=== PATIENT | female | born 1940 | race Two or more races ===

== ENCOUNTER 2023-11-12 16:34 | Observation (INO) | payer BC ==
[2023-11-12 18:03] LABS: VENOUS BASE EXCESS -0.3 mmol/L (-2-2); VENOUS O2 SATURATION 50.4 % (70-80); VENOUS PCO2 41.4 mmHg (38-52); VENOUS PH 7.392 (7.310-7.410)
[2023-11-12 18:07] LABS: BASO % 0.9 % (0-2.0); EOS % 4.5 % (0-4.5); HEMATOCRIT 35.7 % (32.4-45.2); HEMOGLOBIN 11.7 GM/dL (10.7-15.3); LYMPH % 26.9 % (8-40); MCH 32.3 pg (25.7-33.7); MCHC 32.6 g/dl (32.0-36.0); MEAN PLT VOLUME 7.8 fl (7.5-11.1); MONO % 7.2 % (3.8-10.2); NEUT % 60.5 % (42.8-82.8); PLATELET COUNT 343 10^3/uL (134-434); RBC 3.61 M/mm3 (3.60-5.2); RDW 16.3 % (11.6-15.6); WHITE BLOOD COUNT 7.6 K/mm3 (4.0-10.0)
[2023-11-12 18:09] LABS: EPI CELLS 34 /uL (0-25.1); HYALINE CASTS 0 /uL (0-3.1); URINE APPEARANCE CLEAR; URINE BACTERIA >9,000 /uL (0-1359); URINE BILIRUBIN NEGATIVE (NEGATIVE); URINE COLOR YELLOW; URINE GLUCOSE (UA) NEGATIVE (NEGATIVE); URINE KETONE NEGATIVE (NEGATIVE); URINE LEUK ESTERASE 1+ (NEGATIVE); URINE NITRITE NEGATIVE (NEGATIVE); URINE PROTEIN NEGATIVE (NEGATIVE); URINE RBC 5 /uL (0-23.9); URINE UROBILINOGEN 0.2 mg/dL (0.2-1.0); URINE WBC 54 /uL (0-25.8)
[2023-11-12 18:13] LABS: INR 1.05 (0.83-1.09); PROTHROMBIN TIME (PATIENT) 12.2 SEC (9.7-13.0)
[2023-11-12 18:16] LABS: ACTIVATED PTT 25.5 SECONDS (25.2-36.5)
[2023-11-12] MEDS ORDERED: ACETAMINOPHEN INJECTION 100 ML IVPB ONE (18:35)
[2023-11-12 18:37] LABS: POTASSIUM 3.9 mmol/L (3.5-5.1)
[2023-11-12 18:39] LABS: ALBUMIN 3.1 g/dl (3.4-5.0); BLOOD UREA NITROGEN 18.6 mg/dL (7-18); CALCIUM 8.9 mg/dL (8.5-10.1); MAGNESIUM 1.6 mg/dL (1.8-2.4)
[2023-11-12] MEDS: ACETAMINOPHEN 1000 MG/100 ML BAG IVPB ONE (18:39)
[2023-11-12 18:42] LABS: CREATININE 0.8 mg/dL (0.55-1.3); PHOSPHOROUS 3.5 mg/dL (2.5-4.9)
[2023-11-12 18:44] LABS: BILIRUBIN,TOTAL 0.5 mg/dL (0.2-1); TOT PROT 7.5 g/dl (6.4-8.2)
[2023-11-12] MEDS ORDERED: CEFTRIAXONE 1 GM/50 ML BAG ONE (19:18)
[2023-11-12] MEDS: CEFTRIAXONE 1 GM in DEXTROSE 5%-WATER - 100 ML IVPB ONE (19:29)
[2023-11-12] MEDS ORDERED: MAGNESIUM SULFATE IN WATER 2 GM/50 ML IVPB IVPB ONE (20:47)
[2023-11-12] MEDS: MAGNESIUM SULFATE IN WATER 2 GM/50 ML IVPB IVPB ONE (20:53)
[2023-11-12] MEDS ORDERED: ALBUTEROL SO4 HFA INHALER IH PRN (22:59)
[2023-11-12 23:15] VITALS: BMI 25.0
[2023-11-12] MEDS: GABAPENTIN 100 MG CAPSULE PO SCH (23:30)
[2023-11-12 23:35] LABS: N-TERMINAL BNP 191.8 pg/ml (5-450)
[2023-11-12] MEDS: ALBUTEROL SO4 2.5/IPRATROPIUM 0.5 INH SOL 3 ML VIAL.NEB. NEB SCH (23:55)
[2023-11-13] MEDS: ALBUTEROL SO4 2.5/IPRATROPIUM 0.5 INH SOL 3 ML VIAL.NEB. NEB SCH (07:40)
[2023-11-13 07:57] LABS: POTASSIUM 3.8 mmol/L (3.5-5.1)
[2023-11-13 07:59] LABS: CALCIUM 8.1 mg/dL (8.5-10.1)
[2023-11-13 08:00] LABS: BLOOD UREA NITROGEN 17.7 mg/dL (7-18)
[2023-11-13 08:03] LABS: CREATININE 0.8 mg/dL (0.55-1.3); MAGNESIUM 2.1 mg/dL (1.8-2.4); PHOSPHOROUS 3.7 mg/dL (2.5-4.9)
[2023-11-13 08:04] LABS: BILIRUBIN,TOTAL 0.4 mg/dL (0.2-1); TOT PROT 6.2 g/dl (6.4-8.2)
[2023-11-13 08:07] LABS: ALBUMIN 2.4 g/dl (3.4-5.0)
[2023-11-13 09:13] LABS: HEMATOCRIT 31.2 % (32.4-45.2); MCH 31.9 pg (25.7-33.7); MCHC 32.2 g/dl (32.0-36.0); MEAN CELL VOLUME 99.2 fl (80-96); MEAN PLT VOLUME 8.2 fl (7.5-11.1); PLATELET COUNT 293 10^3/uL (134-434); RBC 3.15 M/mm3 (3.60-5.2); WHITE BLOOD COUNT 5.2 K/mm3 (4.0-10.0)
[2023-11-13] MEDS: ENOXAPARIN NA (PORCINE) 40 MG/0.4 ML DISP.SYRIN SQ SCH (09:40)
[2023-11-13] MEDS: DONEPEZIL HCL 5 MG TABLET (FP) PO SCH (09:40)
[2023-11-13] MEDS: FOLIC ACID 1 MG TABLET (FP) PO SCH (09:40)
[2023-11-13] MEDS: MONTELUKAST NA 10 MG TABLET PO SCH (09:40)
[2023-11-13] MEDS ORDERED: CEFTRIAXONE 1,000 MG in DEXTROSE 5%-WATER - 50 ML IVPB SCH (10:00)
[2023-11-13] MEDS ORDERED: PATIENT'S OWN MEDICATION (NON-FORMULARY) (Losartan/Hydrochlorothiazide [Losartan-Hctz 100- PO SCH (10:00)
[2023-11-13] MEDS: CEFTRIAXONE 1 GM in DEXTROSE 5%-WATER - 50 ML IVPB SCH (10:10)
[2023-11-13] MEDS: TOLTERODINE TARTRATE LA 4 MG CAP.SR.24H (FP) PO SCH (10:49)
[2023-11-13] MEDS: NORTRIPTYLINE HCL 10 MG CAPSULE PO SCH (10:50)
[2023-11-13] MEDS: LOSARTAN 50MG/HCTZ 12.5MG 1 TAB PO SCH (10:50)
[2023-11-13] MEDS: SODIUM CHLORIDE NASAL SPRAY 44 ML BOTTLE NS PRN (17:06)
[2023-11-13] MEDS: ACETAMINOPHEN 1000 MG/100 ML BAG IVPB PRN (17:48)
[2023-11-13] MEDS: LIDOCAINE 4% PATCH TP SCH (17:57)
[2023-11-13] MEDS: methylPREDNISolone NA SUCC 40 MG/1 ML VIAL IVPUSH SCH (22:23)
[2023-11-13] MEDS: LIDOCAINE PATCH REMOVAL MC SCH (22:31)
[2023-11-14 08:22] LABS: POTASSIUM 4.5 mmol/L (3.5-5.1)
[2023-11-14 08:25] LABS: CALCIUM 8.6 mg/dL (8.5-10.1)
[2023-11-14 08:26] LABS: ALBUMIN 2.6 g/dl (3.4-5.0); BLOOD UREA NITROGEN 20.1 mg/dL (7-18); MAGNESIUM 2.1 mg/dL (1.8-2.4)
[2023-11-14 08:29] LABS: CREATININE 0.9 mg/dL (0.55-1.3)
[2023-11-14 08:31] LABS: BASO % 0.2 % (0-2.0); BILIRUBIN,TOTAL 0.3 mg/dL (0.2-1); HEMATOCRIT 33.5 % (32.4-45.2); HEMOGLOBIN 10.8 GM/dL (10.7-15.3); LYMPH % 13.7 % (8-40); MCH 32.2 pg (25.7-33.7); MCHC 32.4 g/dl (32.0-36.0); MEAN CELL VOLUME 99.5 fl (80-96); MEAN PLT VOLUME 8.2 fl (7.5-11.1); MONO % 1.9 % (3.8-10.2); NEUT % 84.2 % (42.8-82.8); PLATELET COUNT 310 10^3/uL (134-434); RBC 3.36 M/mm3 (3.60-5.2); RDW 16.3 % (11.6-15.6); TOT PROT 7.1 g/dl (6.4-8.2); WHITE BLOOD COUNT 3.8 K/mm3 (4.0-10.0)
[2023-11-14] MEDS: ONDANSETRON 4 MG/2 ML VIAL IVPUSH ONE (18:06)
[2023-11-15 08:57] LABS: HEMATOCRIT 30.9 % (32.4-45.2); HEMOGLOBIN 10.3 GM/dL (10.7-15.3); MCH 32.5 pg (25.7-33.7); MCHC 33.4 g/dl (32.0-36.0); MEAN CELL VOLUME 97.5 fl (80-96); MEAN PLT VOLUME 8.4 fl (7.5-11.1); PLATELET COUNT 337 10^3/uL (134-434); RBC 3.17 M/mm3 (3.60-5.2); RDW 15.9 % (11.6-15.6); WHITE BLOOD COUNT 14.2 K/mm3 (4.0-10.0)
[2023-11-15 09:08] LABS: POTASSIUM 3.9 mmol/L (3.5-5.1)
[2023-11-15 09:13] LABS: ALBUMIN 2.8 g/dl (3.4-5.0); BLOOD UREA NITROGEN 30.7 mg/dL (7-18); MAGNESIUM 2.4 mg/dL (1.8-2.4)
[2023-11-15 09:16] LABS: CREATININE 0.9 mg/dL (0.55-1.3)
[2023-11-15 09:18] LABS: BILIRUBIN,TOTAL 0.2 mg/dL (0.2-1)
[2023-11-15] MEDS: BISACODYL 5 MG TABLET.DR (FP) PO ONE (14:32)
[2023-11-15] MEDS: CEFUROXIME AXETIL 250 MG TABLET PO SCH (21:58)
[2023-11-16 08:48] LABS: BASO % 0.2 % (0-2.0); EOS % 0.1 % (0-4.5); HEMATOCRIT 34.8 % (32.4-45.2); HEMOGLOBIN 11.1 GM/dL (10.7-15.3); LYMPH % 7.4 % (8-40); MEAN CELL VOLUME 99.7 fl (80-96); MEAN PLT VOLUME 8.3 fl (7.5-11.1); MONO % 3.6 % (3.8-10.2); NEUT % 88.7 % (42.8-82.8); PLATELET COUNT 330 10^3/uL (134-434); RBC 3.49 M/mm3 (3.60-5.2); RDW 16.2 % (11.6-15.6); WHITE BLOOD COUNT 11.6 K/mm3 (4.0-10.0)
[2023-11-16] MEDS: predniSONE 20 MG TABLET (UD) PO SCH (09:04)
[2023-11-16 10:12] LABS: POTASSIUM 4.7 mmol/L (3.5-5.1)
[2023-11-16 10:25] LABS: ALBUMIN 2.8 g/dl (3.4-5.0); MAGNESIUM 2.4 mg/dL (1.8-2.4)
[2023-11-16 10:28] LABS: CREATININE 0.9 mg/dL (0.55-1.3)
[2023-11-16 10:29] LABS: TOT PROT 7.2 g/dl (6.4-8.2)
[2023-11-16 10:30] LABS: BILIRUBIN,TOTAL 0.2 mg/dL (0.2-1)
[2023-11-16 10:44] LABS: BLOOD UREA NITROGEN 38.2 mg/dL (7-18)
[2023-11-16] MEDS: LACTULOSE 20 GM/30 ML UDC (FOR ORAL USE ONLY) PO ONE (12:32)
[2023-11-16 14:46] VITALS: BP 109/60; PULSE 93; RESP 20; TEMP 97.6
== END 2023-11-16 17:14 | disposition home or self-care (01) ==
LOC: JER 16:34 → JERBED 20:10 → J8W 22:51
PROVIDERS: ADMIT Internal Medicine; ATTEND Nurse Practitioner Acute Care
PROC: 3E033NZ Introduction of Analgesics, Hypnotics, Sedatives into Peripheral Vein, Percutaneous Approach (ICD-10-PCS; principal; 2023-11-12)
PROC: 3E0F7GC Introduction of Other Therapeutic Substance into Respiratory Tract, Via Natural or Artificial Opening (ICD-10-PCS; 2023-11-12)
PROC: 3E03329 Introduction of Other Anti-infective into Peripheral Vein, Percutaneous Approach (ICD-10-PCS; 2023-11-12)
PROC: 3E023GC Introduction of Other Therapeutic Substance into Muscle, Percutaneous Approach (ICD-10-PCS; 2023-11-12)
PROC: 3E033GC Introduction of Other Therapeutic Substance into Peripheral Vein, Percutaneous Approach (ICD-10-PCS; 2023-11-12)
DX: J84.112 Idiopathic pulmonary fibrosis (principal); N39.0 Urinary tract infection, site not specified; J44.9 Chronic obstructive pulmonary disease, unspecified; Z87.891 Personal history of nicotine dependence; Z99.81 Dependence on supplemental oxygen; I10 Essential (primary) hypertension; D64.9 Anemia, unspecified; R09.02 Hypoxemia
CPT/HCPCS: 0241U-QW; 36415; 71045-TC-FY; 71250-TC; 76856-TC; 80053; 81003; 82803; 83735; 83880; 84100; 84484; 85025; 85027; 85610; 85730; 86850; 86900; 86901; 87086; 87186; 93005; 93010; 93306-TC; 94640; 96365; 96367; 96372; 96375; 96376; 97116-GP; 97161-GP; 99285-25; G0378; J0131